=== PATIENT | male | born 1955 | race Caucasian/White ===

== ENCOUNTER 2016-07-19 23:37 | Observation (INO) | payer MEDICARE ==
--- NOTE | 2016-07-19 23:56 | ER Document Report ---
ED General - General Chief Complaint: Near Syncope Stated Complaint: NEAR SYNCOPAL EPISODE Notes: Patient is a 60-year-old male presents with complaint of syncopal episode. Patient says he felt dizzy and lightheaded. He went to use the bathroom. Started to feel worse. He called for his . Malone read by his bedside he was poorly responsive. She says that he turned blue and was sweating. She says that he was poorly responsive and sweating for approximately 30 minutes. She says his entire face and lips were blue. He denies any chest pain. He says he mouth had a mild headache earlier today but did not have any headache during the time of the episode. He says he just felt very unwell and lightheaded. He denies feeling like his heart was racing but does not remember the entire episode. The is a retired nurse. She says his pulse was very thready during the episode. 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 He is on lifelong anticoagulation with Xarelto. He does have an IVC filter. Last CT scan he had looking his chest was in 2007. He did have a recent cardiac workup 6 months ago with stress test which was negative. No previous history of [place]. TRAVEL OUTSIDE OF THE [place] IN LAST 30 DAYS: No - Related Data Allergies/Adverse Reactions: No Known Allergies Allergy (Unverified 07/20/16 02:24) Home Medications: Current Home Medications Baclofen [Baclofen] 20 mg PO TIDP PRN 07/20/16 [History] Bupropion HCl [Bupropion HCl Sr] 150 mg PO QPM 07/20/16 [History] Bupropion HCl [Bupropion HCl Sr] 300 mg PO QAM 07/20/16 [History] Desvenlafaxine [Desvenlafaxine ER] 100 mg PO DAILY 07/20/16 [History] Docusate Sodium [Colace 100 mg Capsule] 500 mg PO BID 07/20/16 [History] Fenofibrate [Fenofibrate] 160 mg PO DAILY 07/20/16 [History] Finasteride [Finasteride] 1 mg PO DAILY 07/20/16 [History] Hydrocodone/Acetaminophen [Hydrocodon-Acetaminophen 5-325] 1 tab PO Q4HP PRN 11/28 [History] Ketoconazole [Nizoral 2% Shampoo 120 Ml Bottle] 1 applic TP TID 07/20/16 [ History] Metformin HCl [Metformin HCl ER] 1,000 mg PO BID 07/20/16 [History] Mirtazapine [Mirtazapine] 15 mg PO QHS 07/20/16 [History] Montelukast Sodium [Singulair] 10 mg PO DAILY 07/20/16 [History] Oxycodone HCl [Oxycodone HCl] 30 mg PO Q6HP PRN 07/20/16 [History] Oxycodone HCl [Oxycontin] 40 mg PO TID 07/20/16 [History] Pantoprazole Sodium [Protonix] 40 mg PO DAILY 07/20/16 [History] Quetiapine Fumarate [Quetiapine Fumarate] 400 mg PO DAILY 07/20/16 [History] Rivaroxaban [Xarelto] 20 mg PO DAILY 07/20/16 [History] Simvastatin [Zocor 40 mg Tablet] 40 mg PO QHS 07/20/16 [History] Triamcinolone Acetonide [Aristocort 0.1% Cream 15 gm] 1 applic TP BIDP PRN 07/20 [History] Past Medical History - Social History Smoking Status: Never Smoker Frequency of alcohol use: None Drug Abuse: None Family History: Reviewed & Not Pertinent Review of Systems - Review of Systems Notes: My Normal Review Basic REVIEW OF SYSTEMS: CONSTITUTIONAL : Denies fever, chills, or sweats. Denies recent illness. EENT: Denies eye, ear, throat, or mouth pain or symptoms. Denies nasal or sinus congestion. CARDIOVASCULAR: Denies chest pain. RESPIRATORY: Had shallow breathing and was cyanotic. GASTROINTESTINAL: Denies abdominal pain. Denies nausea, vomiting, or diarrhea. Denies constipation. Last BM: GENITOURINARY: Denies difficulty urinating, painful urination, burning, frequency, or blood in urine. MUSCULOSKELETAL: Denies neck or back pain or joint pain or swelling. SKIN: Denies rash or skin lesions. HEMATOLOGIC : Denies easy bruising or bleeding. LYMPHATIC: Denies swollen, enlarged glands. NEUROLOGICAL: Was Diaphoretic, sweaty, confused and altered. ALL OTHER SYSTEMS REVIEWED AND NEGATIVE. Physical Exam - Vital signs Vitals: Temp 97.8 F 07/19/16 23:49 - Notes Notes: General Appearance: Well nourished, alert, cooperative, no acute distress, no obvious discomfort. Currently well-appearing. Vitals: reviewed, See vital signs table. Head: no swelling or tenderness to the head Eyes: PERRL, EOMI, Conjuctiva clear Mouth: No decreasd moisture Neck: Supple, no neck tenderness, Lungs: No wheezing, No rales, No rhonci, No accessory muscle use, good air exchange bilaterally. Heart: Normal rate, Regular rythm, No murmur, no rub Abdomen: Normal BS, soft, No rigidity, No abdominal tenderness, No guarding, no rebound, no abdominal masses, no organomegaly Extremities: strength 5/5 in all extremities, good pulses in all extremities, no swelling or tenderness in the extremities, no edema. Skin: warm, dry, appropriate color, no rash Neuro: speech clear, oriented x 3, normal affect, responds appropriately to questions. Cranial nerves II through XII are intact. Distal sensation intact. Patient moves all extremities without difficulty. Course - Re-evaluation Re-evalutation: 07/20/16 02:35 Patient continues to feel well and based back this time. His story and history are still very concerning. I suspect may be have had an arrhythmia based on his history. I am awaiting hear back from the hospitalist about consideration for admission. - Vital Signs Vital signs: Temp Pulse Resp BP Pulse Ox 97.8 F 74 10 L 127/106 H 95 07/19/16 23:49 07/20/16 01:42 07/20/16 04:31 07/20/16 04:31 07/20/16 04:31 - Laboratory Result Diagrams: 07/20/16 00:10 07/20/16 00:10 Laboratory results interpreted by me: 07/20/16 07/20/16 07/20/16 00:10 00:10 01:45 WBC 12.3 H Hgb 12.6 L RDW 14.5 H Absolute Neutrophils 8.9 H Chloride 110 H BUN 21 H Glucose 139 H Creatine Kinase 53 L Total Protein 6.2 L Urine Protein 30 H Urine Ketones TRACE H Ur Leukocyte Esterase TRACE H Urine Ascorbic Acid 40 H - EKG Interpretation by Me Additional EKG results interpreted by me: 07/19/16 23:56 EKG is reviewed and interpreted by me. EKG shows normal sinus rhythm with rate [address] segment elevation or depression. No ischemic T wave inversions. MD interval, QRS duration, QTC intervals are within normal range. No old EKG available for comparison. Discharge - Discharge Clinical Impression: Syncope Qualifiers: Syncope type: unspecified Qualified Code(s): R55 - Syncope and collapse Condition: Stable Disposition: ADMITTED OBSERVATION Admitting Provider: Hospitalist Unit Admitted: Telemetry
[2016-07-20 00:36] LABS: ABSOLUTE EOSINOPHILS # (AUTO) 0.1 10^3/uL (0.0-0.6); ABSOLUTE LYMPHOCYTES (AUTO) 2.6 10^3/uL (0.5-4.7); ABSOLUTE MONOCYTES (AUTO) 0.7 10^3/uL (0.1-1.4); ABSOLUTE NEUT (AUTO) 8.9 10^3/uL (1.7-8.2); BASOPHILS % (AUTO) 0.4 % (0-2); HEMATOCRIT 38.1 % (37.9-51.0); HEMOGLOBIN 12.6 g/dL (13.5-17.0); HGB HCT DIFFERENCE -0.3; LYMPHOCYTES % (AUTO) 20.9 % (13-45); MEAN CORPUSCULAR HEMOGLOBIN 28.1 pg (27.0-33.4); MEAN CORPUSCULAR HGB CONC 33.1 g/dL (32.0-36.0); MEAN CORPUSCULAR VOLUME 85 fl (80-97); MONOCYTES % (AUTO) 5.3 % (3-13); RED BLOOD COUNT 4.49 10^6/uL (4.35-5.55); RED CELL DISTRIBUTION WIDTH 14.5 % (11.5-14.0); SEGMENTED NEUTROPHILS % (AUTO) 72.4 % (42-78); WHITE BLOOD COUNT 12.3 10^3/uL (4.0-10.5)
[2016-07-20 00:48] LABS: ALANINE AMINOTRANSFERASE 32 U/L (21-72); ALBUMIN 4.1 g/dL (3.5-5.0); ALKALINE PHOSPHATASE 47 U/L (38-126); ANION GAP 12 (5-19); ASPARTATE AMINO TRANSFERASE 25 U/L (17-59); BILIRUBIN,DIRECT 0.1 mg/dL (0.0-0.4); BILIRUBIN,TOTAL 0.2 mg/dL (0.2-1.3); BLOOD UREA NITROGEN 21 mg/dL (7-20); CALCIUM 9.5 mg/dL (8.4-10.2); CARBON DIOXIDE 22 mmol/L (22-30); CHLORIDE 110 mmol/L (98-107); CREATINE KINASE 53 U/L (55-170); CREATININE RESULT 1.14 mg/dL (0.52-1.25); GLUCOSE 139 mg/dL (75-110); POTASSIUM 4.8 mmol/L (3.6-5.0); SODIUM 144.1 mmol/L (137-145); TOTAL PROTEIN 6.2 g/dL (6.3-8.2)
[2016-07-20 01:00] LABS: CREATINE KINASE MB 0.66 ng/mL (<4.55)
[2016-07-20 01:01] LABS: TROPONIN I < 0.012 ng/mL
[2016-07-20 02:05] LABS: APPEARANCE,URINE CLOUDY; BILIRUBIN,URINE NEGATIVE (NEGATIVE); GLUCOSE, URINE NEGATIVE (NEGATIVE); KETONES,URINE TRACE mg/dL (NEGATIVE); LEUKOCYTE ESTERASE,URINE TRACE (NEGATIVE); NITRITE,URINE NEGATIVE (NEGATIVE); PROTEIN,URINE 30 mg/dL (NEGATIVE); URINE SPECIFIC GRAVITY 1.032; UROBILINOGEN,URINE NEGATIVE mg/dL (<2.0)
[2016-07-20] MEDS ORDERED: NORMAL SALINE 500 ML IV ONE (03:18)
[2016-07-20 06:08] LABS: PARTIAL THROMBOPLASTIN TIME 30.1 SEC (23.5-35.8); PROTHROMBIN TIME 14.3 SEC (11.4-15.4)
--- NOTE | 2016-07-20 06:13 | EKG REPORT ---
SEVERITY:- BORDERLINE ECG - SINUS RHYTHM BORDERLINE INFERIOR Q WAVES : Confirmed by: Irene Medrano 20-Jul-2016 06:11:56
[2016-07-20] MEDS ORDERED: DEXTROSE 40% GEL 15 GM TUBE PO PRN ×2 (07:23)
[2016-07-20] MEDS ORDERED: INSULIN LISPRO 100 UNIT/ML 3 ML VIAL SUBCUT PRN (07:23)
[2016-07-20] MEDS ORDERED: GLUCAGON,HUMAN RECOMB 1 MG INJ IM PRN (07:23)
[2016-07-20] MEDS ORDERED: DEXTROSE 50%-WATER 25 GM/50 ML DISP.SYRIN IV PRN ×2 (07:23)
[2016-07-20] MEDS ORDERED: ACETAMINOPHEN 325 MG TABLET PO PRN (07:27)
[2016-07-20] MEDS ORDERED: 1/2 NORMAL SALINE 1,000 ML IV PRN (07:40)
[2016-07-20] MEDS ORDERED: NICOTINE 14 MG/24 HR PATCH.TD24 TD PRN (07:52)
--- NOTE | 2016-07-20 08:03 | PDOC H&P ---
History of Present Illness Admission Date/PCP: 07/20/16 05:31 PCP ?? Patient complains of: syncope History of Present Illness: KIMBERLY ISSA is a 60 year old male with underlying type II diabetes mellitus, hyperlipidemia, chronic back pain,Benign prostatic hypertrophy, and a history of multiple pulmonary emboli, status post caval implant, lifelong Xarelto, who presents to the emergency room for evaluation of above complaint. Patient has been discussed with emergency room physician who evaluated the patient. While making coffee at home, patient began to feel dizzy and a bit lightheaded. Went to the bathroom and began to feel worse. 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 He reportedly had a syncopal episode and was poorly responsive for almost 30 minutes, becoming cyanotic around his entire face. Per nursing staff, EMS arrived and as they were helping the patient stand, he had an episode of orthostatic hypotension. Has been hemodynamically stable in the emergency room. States he's had minor episodes of dizziness in the past, but this was by far the worst. Had a mild headache earlier in the day, but not associated with the above episode. No associated nausea vomiting, fever chills, diarrhea or dysuria. No chest pain. Negative stress test approximately 6 months ago. No previous history of myocardial infarction or congestive heart failure. No history of atrial fibrillation, atrial flutter, or rapid irregular heartbeat. He's currently resting quietly, without specific complaint other than being somewhat tired.. Laboratory results are listed in [facility] and are reviewed. X-ray summary results are listed below, with full report(s) reviewed. Of note, CTA of the chest makes comment about diffuse bilateral groundglass opacities, but patient has no pulmonary complaints, and review of the actual films themselves by the emergency room physician, along with a chest x-ray itself, reveals no obvious evidence of such findings.. EKG reviewed. No prior EKG available for comparison. Social history/personal habits: . Has children. Retired. Half-pack of cigarettes per day. No alcohol or illicit drug use. Allergies/adverse reactions are listed in [facility] and are reviewed. Home medications Home medications initially autopopulated into [employer] may not accurately reflect patient's true medications, dosages, and/or frequencies. staging technician to reconcile medications. REVIEW OF SYSTEMS: Constitutional: No fever or chills. Eyes: Wears glasses. ENT: No swallowing problems or complaints. No hearing problems or complaints. Pulmonary: No current complaints. Cardiovascular: See history and present illness. Gastrointestinal: No current complaints, including nausea or vomiting. Skin: No current complaints, including rashes. Hematologic: Easy bruising. Neurologic: No current complaints, including numbness or tingling. Musculoskeletal: Chronic back pain Psychiatric: Mild Anxiety depression; denies suicidal or homicidal ideation. Endocrine: No current complaints, including polyuria. Genitourinary: No current complaints, including dysuria. PHYSICAL EXAMINATION: 5 feet 10 inches tall. 99.3 kg. BMI 31.4 kg/m. Blood pressure 135/71. Pulse 81 and regular. 99% saturation on room air. Respirations are 16 and unlabored. Temperature 97.8. Obese otherwise well-developed male who appears a bit younger than his stated age. Pleasant awake alert and cooperative. No obvious distress other than somewhat anxious. Skin is warm and dry. No grossly obvious evidence of rash in areas of skin examined. No subcutaneous nodules palpated. ENT: Hearing grossly normal to normal conversation. Tongue midline on protrusion pink and slightly tacky. Eyes: No scleral icterus. Pupils equal and reactive to light at 4 mm. [place] conjunctivae. Neck is supple and nontender to gentle active range of motion and palpation. Midline trachea. No palpable thyroid nodule mass enlargement or tenderness. Lymphatic: No palpable cervical or clavicular nodes. Neck and lymphatic exams limited by patient body habitus. Psychiatric: Reasonable insight into acute and chronic medical issues. Oriented to time location and why here. Lungs: Auscultation reveals clear and equal breath sounds bilaterally. No use of accessory respiratory muscles. Cardiovascular: Heart regular rate and rhythm, without gallop murmur or rub. No carotid or abdominal aortic bruits. No ankle or pedal edema. palpable dorsalis pedis pulses. Abdomen:Somewhat, obese, nontender with positive bowel sounds. Unable to adequately evaluate abdomen for masses or organomegaly due to body habitus Extremities: Feet are warm and dry. No calf tenderness to compression. No grossly obvious visual evidence of calf swelling. Gentle manipulation of lower extremities fails to reveal any obvious evidence of injury or instability to knees hips or ankles. Neurologic: Moves upper extremities grossly normally. Patellar reflexes absent. Absent Babinski. Light touch is intact at feet. Dorsiflexion and plantarflexion of feet 5 / 5 and symmetric. Past Medical History Cardiac Medical History: Reports: Hyperlipidema, Pulmonary Embolism Denies: Atrial Fibrillation, Congestive Heart Failure, Myocardial Infarction Pulmonary Medical History: Denies: Asthma, Chronic Obstructive Pulmonary Disease (COPD) Neurological Medical History: Denies: Hemorrhagic CVA, Ischemic CVA, Seizures Endocrine Medical History: Reports: Diabetes Mellitus Type 2 Denies: Diabetes Mellitus Type 1, Hyperthyroidism, Hypothyroidism Renal/ Medical History: Reports: Other - Prostatic hypertrophy GI Medical History: Reports: Gastroesophageal Reflux Disease Denies: Cirrhosis, Hepatitis, Peptic Ulcer Disease Musculoskeltal Medical History: Reports: Other - Chronic back pain Psychiatric Medical History: Reports: Depression, General Anxiety Disorder, Tobacco Dependency Denies: Alcohol Dependency, Substance Abuse Hematology: Reports: Other - Easy bruising Infectious Medical History: Denies: Hepatitis B, Hepatitis C Past Surgical History Past Surgical History: Reports: Appendectomy, Orthopedic Surgery - Multiple spine surgeries Social History Information Source: Patient, Emergency Med Personnel, [facility] Records Lives with: Spouse/Significant other Smoking Status: Current Every Day Smoker Frequency of Alcohol Use: None Drugs: None - Advance Directive Resuscitation Status: Full Code Surrogate healthcare decision maker:: Family History Family History: Reviewed & Not Pertinent Parental Family History Reviewed: Yes Children Family History Reviewed: Yes Sibling(s) Family History Reviewed.: Yes Medication/Allergy Home Medications: RX: Baclofen 20 mg PO TIDP PRN 07/20/16 RX: Bupropion HCl [Bupropion HCl Sr] 150 mg PO QPM 07/20/16 RX: Bupropion HCl [Bupropion HCl Sr] 300 mg PO QAM 07/20/16 RX: Desvenlafaxine [Desvenlafaxine ER] 100 mg PO DAILY 07/20/16 RX: Fenofibrate 160 mg PO DAILY 07/20/16 RX: Ketoconazole [Nizoral 2% Shampoo 120 ml Bottle] 1 applic TP TID 07/20/16 RX: Metformin HCl [Glucophage] 1,000 mg PO BID 07/20/16 RX: Mirtazapine 15 mg PO QHS 07/20/16 RX: Montelukast Sodium [Singulair] 10 mg PO DAILY 07/20/16 RX: Oxycodone HCl 30 mg PO Q6HP PRN 07/20/16 RX: Oxycodone HCl [Oxycontin] 40 mg PO TID 07/20/16 RX: Pantoprazole Sodium [Protonix] 40 mg PO DAILY 07/20/16 RX: Quetiapine Fumarate 400 mg PO QHS 07/20/16 RX: Simvastatin [Zocor 40 mg Tablet] 40 mg PO QHS 07/20/16 RX: Triamcinolone Acetonide [Aristocort 0.1% Cream] 1 applic TP BIDP PRN Allergies/Adverse Reactions: fluticasone [From Flonase] Allergy (Verified 07/20/16 07:10) hydromorphone [From Dilaudid] Allergy (Verified 07/20/16 07:10) morphine Allergy (Verified 07/20/16 07:10) Physical Exam Vital Signs: Temp Pulse Resp BP Pulse Ox 97.8 F 74 10 L 136/75 H 99 07/19/16 23:49 07/20/16 01:42 07/20/16 07:01 07/20/16 07:01 07/20/16 07:01 Results Laboratory Results: 07/20/16 07/20/16 05:42 05:42 Magnesium 1.8 TSH 1.70 07/20/16 05:42 Troponin I < 0.012 Impressions: Chest X-Ray 07/20/16 00:09 IMPRESSION: NO ACUTE RADIOGRAPHIC FINDING IN THE CHEST. Head CT 07/20/16 00:09 IMPRESSION: NORMAL BRAIN CT WITHOUT CONTRAST. Chest/Abdomen CTA 07/20/16 03:18 IMPRESSION: No evidence for pulmonary embolic disease. Diffuse bilateral ground-glass opacities are identified which could represent pulmonary edema or developing pneumonic infiltrates. No pleural effusions are identified. Other findings as noted above Assessment & Plan - Diagnosis (1) Abnormal urinalysis Is this a current diagnosis for this admission?: YesPlan: Urine culture. Will forego antibiotics at this point in time. (2) Orthostatic hypotension Is this a current diagnosis for this admission?: YesPlan: One more liter of IV fluid. Orthostatic vital signs every 4 hours while awake. (3) Syncope Qualifiers: Syncope type: unspecified Qualified Code(s): R55 - Syncope and collapse Is this a current diagnosis for this admission?: YesPlan: Hemodynamically stable since coming to the emergency room. Concern is for possible arrhythmia as etiology of syncope. Will trend troponin, obtain lipid panel, and obtain cardiology consult. I have strongly encouraged patient not to get out of bed without notifying staff , to avoid a fall with injury. Knee high SCDs for DVT prophylaxis, ; with patient on systemic anticoagulation, no need for Lovenox or heparin at this point in time. Impression and plans were discussed with patient, who concurs. Time spent in evaluation and management of patient: 58 minutes. (4) BPH (benign prostatic hyperplasia) Qualifiers: Prostatic enlargement morphology: unspecified morphology Lower urinary tract symptom presence: presence of symptoms unspecified Qualified Code(s ): N40.0 - Benign prostatic hyperplasia without lower urinary tract symptoms Is this a current diagnosis for this admission?: YesPlan: Resume home medications as appropriate once these have been determined and reviewed. (5) Diabetes mellitus type 2 in obese Is this a current diagnosis for this admission?: YesPlan: Cardiac diabetic diet. Accu-Cheks with appropriate sliding scale coverage. Resume home medications as appropriate once these have been determined and reviewed. (6) HLD (hyperlipidemia) Qualifiers: Hyperlipidemia type: unspecified Qualified Code(s): E78.5 - Hyperlipidemia, unspecified Is this a current diagnosis for this admission?: YesPlan: Lipid panel. Resume home medications as appropriate once these have been determined and reviewed.
[2016-07-20 08:15] LABS: ADD ON TESTING BLD IN LAB ACKNOWLEDGE
[2016-07-20 08:37] LABS: CHOLESTEROL 182.68 mg/dL (0-200); Direct HDL 45 mg/dL (>40); TRIGLYCERIDES 240 mg/dL (<150)
[2016-07-20 08:48] LABS: DIRECT LDL 101 mg/dL (<100)
[2016-07-20] MEDS ORDERED: DOCUSATE SODIUM 100 MG CAPSULE PO SCH (10:00)
[2016-07-20] MEDS ORDERED: BACLOFEN 20 MG TABLET PO PRN (13:20)
[2016-07-20] MEDS ORDERED: (PENDING PHARMACY ID) (Oxycodone Hcl [Oxycodone Hcl] 30 MG) PO PRN (13:20)
[2016-07-20] MEDS ORDERED: OXYCODONE HCL IR 5 MG TABLET PO PRN (13:40)
[2016-07-20] MEDS ORDERED: OXYCODONE HCL SR 40 MG TABLET PO SCH (14:00)
[2016-07-20 15:11] VITALS: BP 158/77
[2016-07-20] MEDS ORDERED: METFORMIN HCL 500 MG TABLET PO SCH (16:00)
--- NOTE | 2016-07-20 17:33 | PDOC DISCHARGE SUMMARY ---
General - Admit/Disc Date/PCP Admission Date/Primary Care Provider: 07/20/16 07:27 MONSERRAT GREENFIELD MD Discharge Date: 07/20/16 - Discharge Diagnosis (1) Orthostatic hypotension Is this a current diagnosis for this admission?: Yes (2) Syncope Is this a current diagnosis for this admission?: Yes (3) BPH (benign prostatic hyperplasia) Is this a current diagnosis for this admission?: Yes (4) Diabetes mellitus type 2 in obese Is this a current diagnosis for this admission?: Yes (5) HLD (hyperlipidemia) Is this a current diagnosis for this admission?: Yes - Additional Information Resuscitation Status: Full Code Discharge Diet: Cardiac Discharge Activity: Activity As Tolerated Home Medications: Baclofen 20 mg PO TIDP PRN 07/20/16 Bupropion HCl [Bupropion HCl Sr] 150 mg PO QPM 07/20/16 Bupropion HCl [Bupropion HCl Sr] 300 mg PO QAM 07/20/16 Desvenlafaxine [Desvenlafaxine ER] 100 mg PO DAILY 07/20/16 Fenofibrate 160 mg PO DAILY 07/20/16 Ketoconazole [Nizoral 2% Shampoo 120 ml Bottle] 1 applic TP TID 07/20/16 Metformin HCl [Glucophage] 1,000 mg PO BID 07/20/16 Mirtazapine 15 mg PO QHS 07/20/16 Montelukast Sodium [Singulair] 10 mg PO DAILY 07/20/16 Oxycodone HCl 30 mg PO Q6HP PRN 07/20/16 Oxycodone HCl [Oxycontin] 40 mg PO TID 07/20/16 Pantoprazole Sodium [Protonix] 40 mg PO DAILY 07/20/16 Quetiapine Fumarate 400 mg PO QHS 07/20/16 Simvastatin [Zocor 40 mg Tablet] 40 mg PO QHS 07/20/16 Triamcinolone Acetonide [Aristocort 0.1% Cream] 1 applic TP BIDP PRN 07/20/16 History of Present Illness Patient complains of: Syncope History of Present Illness: KIMBERLY ISSA is a 60 year old male with underlying type II diabetes mellitus, hyperlipidemia, chronic back pain,Benign prostatic hypertrophy, and a history of multiple pulmonary emboli, status post caval implant, lifelong Xarelto, who presents to the emergency room for evaluation of above complaint. Hospital Course Hospital Course: Patient was admitted for syncope. He had documented orthostatic vital signs by EMS with a laying blood pressure of 120/60 and pulse of 88, standing blood pressure 80/56 with pulse of 103. He was given IV fluids in the emergency department and orthostatic blood pressure dropped resolved and patient was asymptomatic afterwards. After discussion of his condition with Dr. Gipson of cardiology it sounds like patient has recently restarted taking finasteride. He discontinued this medicine last year for similar symptoms of dizziness and near syncope. His symptoms returned once he restarted finasteride again. CTA of the chest was negative for pulmonary embolism. He reportedly had negative stress test about 6 months ago. Physical Exam Vital Signs: Temp Pulse Resp BP Pulse Ox 98.4 F 81 10 L 158/77 H 97 07/20/16 15:11 07/20/16 13:49 07/20/16 15:01 07/20/16 15:01 07/20/16 15:01 GENERAL: No acute distress HEENT: Conjunctiva clear, nonicteric, moist mucous membranes, no JVD, midline trachea RESPIRATORY: Clear to auscultation bilaterally, no wheezes, no rhonchi CARDIAC: Regular rate and rhythm, no murmurs/gallops/rubs ABDOMEN: Soft, nondistended, nontender, positive bowel sounds, no rebound, no guarding EXTREMETIES: No edema, cyanosis, clubbing NEUROLOGIC: Alert, oriented to person/place/time, CN's grossly intact, no focal deficits SKIN: No rash, wounds PSYCH: Normal mood, normal affect Results Laboratory Results: 07/20/16 12:34 Troponin I < 0.012 Impressions: Chest X-Ray 07/20/16 00:09 IMPRESSION: NO ACUTE RADIOGRAPHIC FINDING IN THE CHEST. Head CT 07/20/16 00:09 IMPRESSION: NORMAL BRAIN CT WITHOUT CONTRAST. Chest/Abdomen CTA 07/20/16 03:18 IMPRESSION: No evidence for pulmonary embolic disease. Diffuse bilateral ground-glass opacities are identified which could represent pulmonary edema or developing pneumonic infiltrates. No pleural effusions are identified. Other findings as noted above Qualifiers PATEINT BEING DISCHARGED WITH ANY OF THE FOLLOWING DIAGNOSIS?: No Plan Time Spent: Less than 30 Minutes
[2016-07-20] MEDS ORDERED: MIRTAZAPINE 15 MG TABLET PO SCH (22:00)
[2016-07-20] MEDS ORDERED: QUETIAPINE FUMARATE 100 MG TABLET PO SCH (22:00)
[2016-07-20] MEDS ORDERED: BUPROPION HCL 75 MG TABLET PO SCH (22:00)
[2016-07-20] MEDS ORDERED: SIMVASTATIN 40 MG TABLET PO SCH (22:00)
[2016-07-20] MEDS ORDERED: QUETIAPINE FUMARATE 400 MG PO SCH (22:00)
[2016-07-21] MEDS ORDERED: LANSOPRAZOLE 15 MG TAB.RAP.DR PO SCH (08:00)
[2016-07-21] MEDS ORDERED: BUPROPION HCL 100 MG TABLET PO SCH (08:00)
[2016-07-21] MEDS ORDERED: BUPROPION HCL 300 MG PO SCH (08:00)
[2016-07-21] MEDS ORDERED: FINASTERIDE 1 MG PO SCH (10:00)
[2016-07-21] MEDS ORDERED: (PENDING PHARMACY ID) (Fenofibrate [Fenofibrate] 160 MG) PO SCH (10:00)
== END 2016-07-20 15:12 | disposition home or self-care (01) ==
LOC: ER 23:37 → UNDOADMOB 07-20 05:31 → EH 07-20 05:31
PROVIDERS: ADMIT Family Medicine; ATTEND Family Medicine
PROC: 3E0337Z Introduction of Electrolytic and Water Balance Substance into Peripheral Vein, Percutaneous Approach (ICD-10-PCS; principal; 2016-07-19)
DX: I95.1 Orthostatic hypotension (principal); R55 Syncope and collapse; N40.0 Benign prostatic hyperplasia without lower urinary tract symptoms; E11.9 Type 2 diabetes mellitus without complications; E78.5 Hyperlipidemia, unspecified; Z86.711 Personal history of pulmonary embolism; F17.200 Nicotine dependence, unspecified, uncomplicated
CPT/HCPCS: 93005; 99285; 96360; 36415; 87086; 82553; 82962; 82550; 83735; 84443; 85025; 85610; 85730; 80053; 81001; 84484; 80061; 71010; 70450; 71275; 93010; G0378; A9270 ×2; J7040